=== PATIENT | female | born 1950 | race Caucasian/White ===

== ENCOUNTER → 2017-02-16 | Outpatient (CLI) | payer OTHER | END | disposition home or self-care (01) | LOC: CARD 13:40 | PROVIDERS: ATTEND Internal Medicine Cardiovascular Disease | DX: I10 Essential (primary) hypertension (principal); R06.02 Shortness of breath | CPT/HCPCS: 93306; 94060; 94726; 94729 ==

== ENCOUNTER → 2017-06-09 | Outpatient (CLI) | payer OTHER | END | disposition home or self-care (01) | LOC: CFH 08:24 | PROVIDERS: ATTEND Internal Medicine | DX: J84.10 Pulmonary fibrosis, unspecified (principal); J98.11 Atelectasis; E04.9 Nontoxic goiter, unspecified; N28.89 Other specified disorders of kidney and ureter | CPT/HCPCS: 71250 ==